=== PATIENT | female | born 1950 | race Caucasian/White ===

== ENCOUNTER 2017-05-09 13:21 | Emergency (ER) | payer MEDICARE ==
[~2017-05-09] VITALS: Ht 165.1 cm; Wt 55.9 kg
[2017-05-09 13:31] VITALS: BP 140/100; PULSE 127; RESP 12; O2SAT 99
--- NOTE | 2017-05-09 14:21 | ED.REPORT ---
HPI-General Illness Date of Service May 09, 2017 ED Provider: Dr. Sol Pt is a 66 year old female with a hx of melanoma and a stroke presenting to the ED complaining of worsening right hip pain onset 2 months ago after a GLF. For the last 4 days she's had diarrhea, dysuria, malaise, decreased urination, and chills. Denies fever, lower back pain, numbness, weakness, bloody stools, or any other symptoms at this time. Nursing Notes Stated Complaint: TROUBLE WALKING/SHAKY Chief Complaint: Extremity Trauma Nursing Notes Reviewed: Yes Allergies: Coded Allergies: No Known Allergies (Unverified , 05/09/17) Scheduled Sulfamethoxazole/Trimeth 800-160 mg (Bactrim DS) 1 Each Tablet 1 TABLET PO BID General Time Seen by MD: 14:21 Chief Complaint Other (Right hip pain) Hx Obtained From: Patient Arrived By: Walk-in Sudden in Onset?: No Onset Occurred: More than a week ago... 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 Physical Exam Vital Signs Vital Signs Date Time Temp Pulse Resp B/P Pulse Ox O2 Delivery O2 Flow Rate FiO2 05/09/17 16:31 37.2 92 16 147/89 97 Room Air 05/09/17 16:04 37.2 92 16 147/89 97 Room Air 05/09/17 13:31 36.8 127 12 140/100 99 Room Air Initial VS: Reviewed General/Constitutional: Well-developed, Well-nourished Head / Eyes: Atraumatic, Normocephalic, PERRL ENT: Mucous membranes moist, Conjunctiva normal, No scleral icterus Neck: Supple, Non-tender, Full range of motion Respiratory: Breath sounds normal, Clear to auscultation, No respiratory distress Abdomen / GI: Soft, Non-tender, No guarding, No rebound, No distention Extremities: Vascular intact, Neuro intact, No swelling, No tenderness Skin: Warm, Dry, No cyanosis Neurologic: Alert, Oriented, Nonfocal Psychiatric: Mood/affect normal, Behavior normal, Normal thought content Cardiovascular: Regular rhythm, Heart sounds NL Heart Rate / Rhythm: Positive: Tachycardia Lower Extremity / Pelvis / MS: Neurologic intact, Vascular intact Pain with ROM of right hip. Interpretation & Diagnostics Lab Results Interpretation Result Diagram: 05/09/17 1445 05/09/17 1445 Test 05/09/17 14:45 05/09/17 15:01 White Blood Count 10.1th/mm3 (3.8-10.1) Red Blood Count 3.95mil/mm3 (3.90-5.20) Hemoglobin 13.0g/dL (12.0-15.6) Hematocrit 38.4% (35.0-46.0) Mean Corpuscular Volume 97.2fL (81-100) Mean Corpuscular Hemoglobin 32.9pg (27.0-35.0) Mean Corpuscular Hemoglobin Concent 33.9% (32.0-37.0) Red Cell Distribution Width 13.1% (12.3-15.4) Platelet Count 287bil/L (150-400) Neutrophils (%) (Auto) 62.6% (40-74) Lymphocytes (%) (Auto) 30.5% (14-46) Monocytes (%) (Auto) 6.2% (4-12) Eosinophils (%) (Auto) 0.3% (0-5) Basophils (%) (Auto) 0.2% (0-3) Sodium Level 134mEq/L (134-144) Potassium Level 4.3mEq/L (3.5-5.2) Chloride Level 94mEq/L (97-108) Carbon Dioxide Level 21mmol/L (18-29) Blood Urea Nitrogen 11mg/dL (8-27) Creatinine 0.70mg/dL (0.57-1.00) Estimat Glomerular Filtration Rate 120mL/min (>59) Glucose Level 100mg/dL (60-99) Calcium Level 9.5mg/dL (8.5-10.1) Magnesium Level 2.0mg/dL (1.6-2.6) Total Bilirubin 0.3mg/dL (0.0-1.2) Aspartate Amino Transf (AST/SGOT) 15U/L (0-50) Alanine Aminotransferase (ALT/SGPT) 9U/L (0-32) Alkaline Phosphatase 70U/L (25-165) Total Protein 7.4g/dL (6.4-8.4) Albumin 4.4g/dL (3.4-5.0) Lipase 28U/L (13-60) Thyroid Stimulating Hormone (TSH) 1.420uIU/mL (0.450-4.500) Hold Hernandez Top Tube Received (Received) Urine Color Straw (YELLOW) Urine Appearance Hazy (CLEAR,HAZY) Urine pH 6.5 (5.0-8.0) Urine Specific [place] 1.020 (1.003-1.035) Urine Protein Tracemg/dL (NEG,TRACE) Urine Glucose (UA) Negativemg/dL (NEGATIVE) Urine Ketones 40mg/dL (NEGATIVE) Urine Occult Blood Trace (NEGATIVE) Urine Nitrite Negative (NEGATIVE) Urine Bilirubin Negative (NEGATIVE) Urine Urobilinogen Normalmg/dL (NORMAL) Urine Leukocyte Esterase Negative (NEGATIVE) Urine RBC 0-2/hpf (0-2) Urine WBC 6-10/hpf (0-5) Urine Epithelial Cells Occasional/hpf (NONE-MOD) Urine Crystals None seen (NONE SEEN) Urine Bacteria Moderate/hpf (NONE-FEW) Urine Hyaline Casts None/lpf (NONE) Urine Granular Casts None seen (NONE SEEN) Urine Waxy Casts None seen (NONE SEEN) Urine Red Blood Cell Casts None seen (NONE SEEN) Urine White Blood Cell Casts None seen (NONE SEEN) Urine Mucus Present (None Seen) Urine Trichomonas None seen (NONE SEEN) Urine Yeast None (NONE SEEN) Urinalysis Comment None Urine Culture Reflexed Indicated ECG Interpretation ECG Interpretation: No ST changes. Time: 15:01 Interpreted by: ED physician Normal ECG Interpretation: Normal sinus rhythm X-Ray Interpretation Xray Interpretation: IMPRESSION: No fracture Dictated by: Tad Wagner M.D. on 05/09/2017 at 16:17 X-Ray Ordered: Hip right Interpretation / Wet Read by: Interpret - Radiologist Re-Eval/Medical Decision Med Decision/Clinical Course Intensive UTI without sepsis, heart rate has come down after IV fluids likely dehydration. Will start antibiotics. Patient is from out of the area and will follow up with her primary care in [place]. Return precautions given Time of Eval: 16:00 Patient Status: Condition improved Re-Evaluation/Progress Note: Discussed plan for discharge. Pt understands and agrees with plan. Counseled Regarding: Diagnosis, Lab results, Need for follow-up, When/why to return to ED Discharge & Departure Primary Impression: UTI (urinary tract infection) Urinary tract infection type: site unspecified Hematuria presence: without hematuria Qualified Code: N39.0 - Urinary tract infection, site not specified Disposition: Home Discharge Condition All VS Reviewed: Yes Condition: Improved Additional Instructions: You have a urinary tract infection. Your other labs are normal. Your x-ray does not show any fracture. Take Bactrim as prescribed. Follow-up with your regular doctor as needed if worse. Return to ER for any worsening symptoms Referrals: [facility] Scribe Attestation Portions of this note were transcribed by Erin Thomas. I, Dr. Sol personally performed the history, physical exam and medical decision-making; I reviewed and confirmed the accuracy of the information in the transcribed note. Signed by: Franchesca Lal, 05/09/17 at 3755. copies to: [facility] Pawel Sol DO May 09, 2017 14:21 ERIN THOMAS May 09, 2017 14:29
[2017-05-09] MEDS ORDERED: Ondansetron 2 mg/mL 2 mL Inj IVPUSH PRN (14:35)
[2017-05-09] MEDS ORDERED: Ketorolac 15 mg/mL Inj IVPUSH ONE (14:35)
[2017-05-09] MEDS ORDERED: 0.9% Sodium Chloride 1,000 ML IV ONE (14:35)
[2017-05-09 14:53] LABS: BASOPHILS % (AUTO) 0.2 % (0-3); EOSINOPHILS % (AUTO) 0.3 % (0-5); MONOCYTES % (AUTO) 6.2 % (4-12); Mean Corpuscular Hemoglobin 32.9 pg (27.0-35.0); Mean Corpuscular Volume 97.2 fL (81-100); NEUTROPHILS % (AUTO) 62.6 % (40-74); Platelet Count 287 bil/L (150-400)
[2017-05-09 15:28] LABS: APPEARANCE,URINE HAZY (CLEAR,HAZY); COLOR,URINE STRAW (YELLOW); OCCULT BLOOD,URINE TRACE (NEGATIVE); PH,URINE 6.5 (5.0-8.0)
[2017-05-09 15:29] LABS: UROBILINOGEN,URINE NORMAL (NORMAL)
[2017-05-09 16:04] VITALS: BP 147/89; PULSE 92; RESP 16; O2SAT 97
[2017-05-09] MEDS ORDERED: Trimethoprim-Sulfa 160 mg-800 mg Tablet PO ONE (16:10)
--- NOTE | 2017-05-09 16:21 | DRSVH ---
PROCEDURE: X-RAY RIGHT HIP COMPLETE, MINIMUM TWO VIEWS ([id number]) INDICATIONS: right hip pain TECHNIQUE: 2 views of the hip were acquired. COMPARISON: None. FINDINGS: Bones: No fractures or dislocations. Mild right hip joint degeneration. No suspicious bony lesions. The visualized pelvic ring appears intact. Soft tissues: No suspicious soft tissue calcifications or masses. IMPRESSION: No fracture Dictated by: Tad Wagner M.D. on 05/09/2017 at 16:17 Approved by: Tad Wagner M.D. on 05/09/2017 at 16:19
[2017-05-09] MEDS ORDERED: SULF1TAB7 PO (16:26)
[2017-05-09 16:31] VITALS: BP 147/89; PULSE 92; RESP 16; O2SAT 97
== END 2017-05-09 16:49 | disposition home or self-care (01) ==
LOC: SED 13:21
DX: N39.0 Urinary tract infection, site not specified (principal); M25.551 Pain in right hip; R19.7 Diarrhea, unspecified; Z86.73 Personal history of transient ischemic attack (TIA), and cerebral infarction without residual deficits; F17.200 Nicotine dependence, unspecified, uncomplicated
CPT/HCPCS: 36415; 73502; 80053; 81000; 83690; 83735; 84443; 85025; 87077; 87086; 87088; 87186; 93005; 96361; 96374; 96375; 99285; J1885; J2405; J7030